=== PATIENT | female | born 1990 | race Caucasian/White ===

== ENCOUNTER → 2018-11-01 15:55 | Observation (INO) ==
[2018-11-01 14:17] LABS: Amphetamine Screen,Urine Negative ng/mL (Cutoff=1000); Barbiturate Screen,Urine Negative ng/mL (Cutoff=200); Benzodiazepines Screen,Urine Negative ng/mL (Cutoff=200); Cannabinoid Screen,Urine Negative ng/mL (Cutoff = 50); Cocaine Screen,Urine Negative ng/mL (Cutoff= 300); Opiate Screen,Urine Negative ng/mL (Cutoff=300); Phencyclidine Screen,Urine Negative ng/mL (Cutoff=25)
--- NOTE | 2018-11-01 15:39 | Discharge Summary ---
Date of Encounter: 11/01/18 Time of Encounter: 15:40 - Discharge Diagnosis (1) 23 weeks gestation of Priority: Primary Status: Acute Comments: Admitted to observation status post fall at workplace (2) Twin gestation in second trimester Priority: Secondary Status: Acute Qualifiers: Multiple gestation type: dichorionic and diamniotic Qualified Code(s): O30.042 - Twin , dichorionic/diamniotic, second trimester (3) Status post fall Priority: Secondary Status: Acute Comments: Patient reports soreness of back and lower abdomen. Tylenol and heat pack given. No bleeding or contractions present. (4) Blood type O- Priority: Secondary Status: Acute Comments: KHB negative today. - Discharge Medications Prescriptions: No Action LORazepam [Ativan] 0.5 mg PO BID PRN PRN Reason: Anxiety Home Medications: LORazepam [Ativan] 0.5 mg PO BID PRN 05/09/18 [History] Allergies/Adverse Reactions: Allergy/AdvReac Type Severity Reaction Status Date / Time No Known Allergies Allergy Verified 02/23/18 07:44 Data Procedures and tests throughout hospitalization: Laboratory Tests 11/01/18 11/01/18 13:51 13:51 Volume Blood 0 Urine Opiates Screen Negative Ur Barbiturates Screen Negative Ur Phencyclidine Scrn Negative Ur Amphetamines Screen Negative U Benzodiazepines Scrn Negative Urine Cocaine Screen Negative U Marijuana (THC) Screen Negative Ur Drug Screen Interp See Below Labs on day of discharge: Labs from last 24 hours 11/01/18 11/01/18 13:51 13:51 Volume Blood 0 Urine Opiates Screen Negative Ur Barbiturates Screen Negative Ur Phencyclidine Scrn Negative Ur Amphetamines Screen Negative U Benzodiazepines Scrn Negative Urine Cocaine Screen Negative U Marijuana (THC) Screen Negative Ur Drug Screen Interp See Below Date of admission: 11/01/18 12:01 Primary care physician: Kathryn Ivey CNP Discharging clinician: Destiney Davis Anticipated date of discharge: 11/01/18 - Patient Status Disposition: Home, Self-Care Condition: Good Functional capacity at discharge: independent ambulation Overall status at discharge: patient is progressing back to baseline - Discharge Instructions Follow Up With: Kathryn Ivey CNP [Primary Care Provider] - Additional Instructions: May have work note for tomorrow 11/02/18 if needed. - Diet and Activity Activity: increase activity as tolerated Diet: regular diet Hospital Course [employer] Hospital course: Patient comes to L&D after assisting a patient who was falling while at work. Patient states the patient did not fall directly on her and she did not fall directly on her abdomen. She states she was able to push the patient away from her as he fell and she did not land on her abdomen. She does report positive movement of both infants, denies bleeding, fluid leakage and contractions. Her blood type is O negative so we did perform a KHB which returned negative. Patient is given a work note for tomorrow if she finds she is too sore to go to work. She was given Tylenol and heating pad while here with slight relief of soreness. She was offered Flexeril and declined. To follow up as scheduled in office as scheduled for routine care unless she has any further problems. Time Attestation: Total time spent providing and/or coordinating discharge services: Time Spent: Less than 30 minutes Exam - Constitutional General appearance IM: A&O X 3, pleasant, no acute distress, answers questions appropriately Exam: Patient reports soreness in back on lower abdomen - Respiratory Respiratory exam: Present: CTAB - Cardiovascular Cardiovascular exam IM: Present: RRR, +S1, +S2 - GI/Abdominal GI/Abdominal exam IM: normal bowel sounds, soft - Rectal Rectal exam: deferred - External exam: normal external exam - Extremities Exam Extremities exam IM: Present: full ROM, normal capillary refill, normal inspection - Neurological Exam Neurological exam: alert, normal gait, oriented X3 - Other Additional findings: FHR A 145 bpm per auscultation FHR B 150 bpm per auscultation - VTE Reasons for not Prescribing Prophylaxis: Treatment not Indicated - Low risk for VTE
[~2018-11-01 15:55] MED LIST: Acetaminophen 325 MG TABLET PO PRN
== END | disposition home or self-care (01) ==
LOC: 1NENULAB
PROVIDERS: ADMIT Registered Nurse; ATTEND Registered Nurse

== ENCOUNTER → 2018-12-25 20:33 | Observation (INO) ==
[2018-12-25 19:07] LABS: Bilirubin,Urine Negative (Negative); Blood,Urine Negative (Negative); Clarity,Urine Clear (Clear); Color,Urine Yellow (Yellow); Glucose,Urine (UA) Normal (Normal); Ketones,Urine Negative (Negative); Leukocyte Esterase,Urine Trace (Negative); Nitrite,Urine Negative (Negative); PH,Urine 7.5 pH Units (5.0-8.0); Protein,Urine Negative (Neg-Trace); Urobilinogen,Urine Normal (Normal)
[2018-12-25 19:10] LABS: Bacteria,Urine None Seen per hpf (None-Few); Hyaline Casts,Urine None Seen per lpf (None-Few); RBC,Urine 0-3 per hpf (0-3); Squamous Epithelial Cell,Urine Many per lpf (None-Few); WBC,Urine 0-3 per hpf (0-3)
--- NOTE | 2018-12-25 19:30 | OB/GYN Progress Note ---
Date of Encounter: 12/25/18 Time of Encounter: 19:29 - Assessment and Plan (1) 31 weeks gestation of Current Visit: Yes Status: Acute (2) labor in third trimester Current Visit: Yes Status: Acute Pt having irregular uc's after active day today. Will give brethine 0.25 mg sq x1. Will observe Qualifiers: labor delivery status: without delivery Qualified Code(s): O60.03 - labor without delivery, third trimester (3) Twin gestation in third trimester Current Visit: Yes Status: Acute Qualifiers: Multiple gestation type: dichorionic and diamniotic Qualified Code(s): O30.043 - Twin , dichorionic/diamniotic, third trimester Subjective - Subjective Principal diagnosis: Twins, labor, 31 weeks gestation Interval history: Patient's 20-year-old 5 para 2 female at 31 weeks gestation presents to labor and delivery with frequent abdominal tightening that is painless today she states up to 5-69 a viable taken for 1-2 minutes she denies bleeding or leakage of fluid. She was having midline her hospital and was quite active this morning. She has been hydrating while and denies UTI symptoms. Objective - Vital Signs Vital Signs: Intake and Output 12/25/18 12/25/18 12/25/18 07:59 15:59 23:59 Other: Weight 77.201 kg Patient Weight 12/25/18 23:59 Weight 77.201 kg - Exam FHR: category 1 (x2) Auscultation: bilateral: normal Abdomen: Present: gravid Cervical dilation: cl Cervix effacement: th station: -2 - Labs Labs: Abnormal lab results Ur Leukocyte Esterase Trace (Negative) H 12/25/18 18:30 Ur Squamous Epith Cells Many per lpf (None-Few) H 12/25/18 18:30 Ur Culture Indicated? YES (NO) A 12/25/18 18:30
[2018-12-25 19:40] LABS: Amphetamine Screen,Urine Negative ng/mL (Cutoff=1000); Barbiturate Screen,Urine Negative ng/mL (Cutoff=200); Benzodiazepines Screen,Urine Negative ng/mL (Cutoff=200); Cannabinoid Screen,Urine Negative ng/mL (Cutoff = 50); Cocaine Screen,Urine Negative ng/mL (Cutoff= 300); Opiate Screen,Urine Negative ng/mL (Cutoff=300); Phencyclidine Screen,Urine Negative ng/mL (Cutoff=25)
--- NOTE | 2018-12-25 20:16 | OB Labor Progress Note ---
Date of Encounter: 12/25/18 Time of Encounter: 20:14 Labor Progress Note - Subjective Subjective: pt denies uc's. No vb or lof. - Cervix Cervix: cl/th/-2 - Heart Tones Heart Tones: RNST - [place]: no uc's - Plan Plan: Will d/c home.
[~2018-12-25 20:33] MED LIST changes: -Acetaminophen 325 MG TABLET PO PRN; +Terbutaline 1 MG/ML VIAL SQ ONE
== END | disposition home or self-care (01) ==
LOC: 1NENULAB
PROVIDERS: ADMIT Obstetrics & Gynecology; ATTEND Obstetrics & Gynecology

== ENCOUNTER 2019-01-13 18:44 | Inpatient (IN) ==
[2019-01-13 15:56] LABS: Bilirubin,Urine Negative (Negative); Blood,Urine Negative (Negative); Clarity,Urine Cloudy (Clear); Color,Urine Yellow (Yellow); Glucose,Urine (UA) Normal (Normal); Ketones,Urine Negative (Negative); Leukocyte Esterase,Urine Small (Negative); Nitrite,Urine Negative (Negative); PH,Urine 7.5 pH Units (5.0-8.0); Protein,Urine Negative (Neg-Trace); Specific Gravity,Urine 1.014 (1.010-1.025); Urobilinogen,Urine Normal (Normal)
[2019-01-13] MEDS: Betamethasone Acet/SodPhos 30 MG/5 ML VIAL IM SCH (15:57)
[2019-01-13 16:00] LABS: Bacteria,Urine None Seen per hpf (None-Few); Hyaline Casts,Urine None Seen per lpf (None-Few); RBC,Urine 0-3 per hpf (0-3); Squamous Epithelial Cell,Urine Many per lpf (None-Few)
[2019-01-13 16:06] LABS: Amphetamine Screen,Urine Negative ng/mL (Cutoff=1000); Barbiturate Screen,Urine Negative ng/mL (Cutoff=200); Benzodiazepines Screen,Urine Negative ng/mL (Cutoff=200); Cannabinoid Screen,Urine Negative ng/mL (Cutoff = 50); Cocaine Screen,Urine Negative ng/mL (Cutoff= 300); Opiate Screen,Urine Negative ng/mL (Cutoff=300); Phencyclidine Screen,Urine Negative ng/mL (Cutoff=25)
[2019-01-13 16:19] LABS: Amorphous Sediment,Urine Few (Few)
[~2019-01-13 18:44] MED LIST changes: +*HR* Nalbuphine 10 MG/ML AMPUL IVP PRN; +D5% in Lactated Ringers 1,000 ML IVC ONE; +Famotidine 20 MG/2 ML VIAL IVP PRN; +Lidocaine 1% 20 ML MDV ID PRN; +Metoclopramide 10 MG/2 ML VIAL IVP PRN; +Naloxone 0.4 MG/ML INJ IVP PRN; +Ondansetron 4 MG/2 ML VIAL IVP PRN; +Ringers Solution, Lactated 1,000 ML IVC ONE; -Terbutaline 1 MG/ML VIAL SQ ONE
[2019-01-13] MEDS ORDERED: Ringers Solution, Lactated 1,000 ML IVC SCH (18:45)
[2019-01-13 19:00] LABS: Basophils # 0.1 K/mcL (0.0-0.2); Basophils % 0.6 %; Eosinophils # 0.4 K/mcL (0.0-0.6); Eosinophils % 3.7 %; Hematocrit 36.6 % (35.3-44.9); Hemoglobin 12.3 g/dL (11.5-15.4); Immature Granulocytes % 0.3 % (0-4); Lymphocytes # 2.3 K/mcL (0.6-4.6); Lymphocytes % 24.2 %; Mean Corpuscular HGB Conc 33.6 g/dL (31.6-35.5); Mean Corpuscular Hemoglobin 30.1 pg (28.0-33.3); Mean Corpuscular Volume 89.5 fL (83.0-100.0); Mean Platelet Volume 11.1 fL (9.4-12.4); Monocytes # 0.8 K/mcL (0.0-1.3); Monocytes % 8.4 %; Platelet Count 235 K/mcL (140-400); Red Blood Count 4.09 M/mcL (3.82-4.97); Red Cell Distribution Width 12.3 % (11.5-14.5); Segmented Neutrophils % 62.8 %
[2019-01-13] MEDS ORDERED: Epidural Premix (fent/bupiv) 110 ML EP SCH (19:15)
[2019-01-13] MEDS ORDERED: Penicillin G Potassium 5,000,000 UNIT in 0.9 % Sodium Chloride Mini Bag 100 ML IVPB ONE (20:04)
--- NOTE | 2019-01-13 20:36 | OB/GYN History & Physical ---
Date of Encounter: 01/13/19 Time of Encounter: 20:27 Assessment and Plan (1) labor in third trimester Current visit: No Status: Acute 28yo @ 34.2wga admitted for expectant management of labor. PCN for GBS ppx @ < 37wga. Continuous EFM & TOCO. O neg, ab neg, GBS unk, Hep B neg, RI, , HIV neg, RPR neg, GC/CT neg. Cat 1 FHR Tracing x2 Qualifiers: labor delivery status: without delivery Qualified Code(s): O60.03 - labor without delivery, third trimester (2) Maternal care for breech presentation, fetus 2 Current visit: Yes Status: Acute Plan for double setup in OR. Discussed risks, benefits & alternatives to possible breech vaginal delivery vs section of breech fetus. Questions answered & pt consented to procedure. (3) Blood type O- Current visit: No Status: Acute 2 units T&C. Consents for transfusion signed. (4) Twin gestation in third trimester Current visit: No Status: Acute Qualifiers: Multiple gestation type: dichorionic and diamniotic Qualified Code(s): O30.043 - Twin , dichorionic/diamniotic, third trimester History of Present Illness Chief complaint: Contractions HPI: Ms. Zach Drummond is a 28 year old female @ 34.2wga presents from clinic with intermittent contractions & dilated to 2-3cm & 50% effaced with Di-Di- twins gestation. Growth scan on 01/06/19 showed Twin A (girl) vertex @ 1914g & Twin B (male) breech @ 2000g. She had discussed a vaginal delivery for Twin A & an attempted vaginal delivery for Twin B with Dr. Sorto. +FM x2. She denies VB, LOF, abnormal vaginal discharge, dysuria, CP, SOB, or any complications with this . Past Med Surg Social Fam HX - Past Medical History Attestation: Yes The following information was validated with the patient. Source: patient Medical history: GERD, migraine Psychiatric history: anxiety, depression - Past Surgical History Additional surgical history: FOOT SURGERY. SEPTOPLASTY. D&C x2 - Social History Smoking Status: Former smoker Smokeless Tobacco Status: No Alcohol use: none Drug use: none Current living situation: Home - Independent Activity Level: Independent ambulation Recent Out of Country Travel Within the Last 8 Weeks: No Exposure or Possible Exposure to Illness During Travel: No - Family History Mother Living Status: Cause of : fall Hx Family Cardiac Disorders: No Hx Family Respiratory Disorders: No Hx Family Cancer: No Hx Family GI Disorders: No Hx Family Endocrine Disorder: No Hx Family Neuromuscular Disorders: No Hx Family Neurologic Disorders: No Hx Family HEENT Disorders: No Hx Family Autoimmune Disorders: No Hx Family Medical Disorders: Yes (Diabetic) Obstetrical History - Pregnancies : 5 Para: 2 Term: 2 : 0 Ab's: 2 (SAB x 2, D&C x2) Livin Medications and Allergies Aspirin 01/13/19 [History] Folic Acid 01/13/19 [History] Tablet 81 mg PO ONCE 01/13/19 [History] Allergy/AdvReac Type Severity Reaction Status Date / Time No Known Allergies Allergy Verified 02/23/18 07:44 Review of System OB All systems PM: reviewed and no additional remarkable complaints except as stated - Constitutional Constitutional ROS IM: as per HPI Exam - Constitutional Constitutional: well developed, no acute distress, average body habitus - HEENT HEENT: EOMI, Normocephaly, Mucus Membranes Moist - Neck Neck exam: supple - Abdomen Abdomen: Present: gravid, non tender - Cervix Dilation: 4 Effacement: 70 Station: -2 Results Result Diagrams: 01/13/19 15:50 Abnormal lab results Cloudy (Clear) A 01/13/19 15:30 Ur Leukocyte Esterase Small (Negative) H 01/13/19 15:30 5-15 per hpf (0-3) H 01/13/19 15:30 Ur Squamous Epith Cells Many per lpf (None-Few) H 01/13/19 15:30 Ur Culture Indicated? YES (NO) A 01/13/19 15:30 All other labs normal. - VTE Reasons for not Prescribing Prophylaxis: Treatment not Indicated - Low risk for VTE
--- NOTE | 2019-01-13 21:28 | Anesthesia Evaluation PreOp ---
Date of Encounter: 01/13/19 Time of Encounter: 21:25 - Past History Planned Operation: OF TWINS, POSSIBLE LSCS Other Medical History: GERD, Other (, 34.2 WKS, BREECH FETUS #2, PROGRESSING [employer]) Anesthesia History: Past Anesthesia, Problems (PONV) Alcohol Use: none Drug use: none Medications and Allergies Aspirin 01/13/19 [History] Folic Acid 01/13/19 [History] Tablet 81 mg PO ONCE 01/13/19 [History] Allergy/AdvReac Type Severity Reaction Status Date / Time No Known Allergies Allergy Verified 02/23/18 07:44 - Meds/Allergy Pre-op Review Medications Reviewed: Yes Allergies Reviewed: Yes Anesthesia Results - Labs 01/13/19 15:50 Laboratory Tests 01/13/19 15:50 Blood Type O NEGATIVE Antibody Screen POSITIVE Antibody Identification Pending Anesthesia Exam Weight: 78 KG - BMI 30 - HEENT Mallampati: I Teeth: Normal Oral Opening: Greater than 3 - Cardiac Rhythm: Regular - Pulmonary Breath Sounds: bilateral Clear Anesthesia Assess/Plan ASA Score: 2, E Anesthetic Plan: General (BACKUP PLAN), Epidural Monitoring Plan: Standard Monitors Recovery Plan: PACU
[2019-01-13] MEDS ORDERED: *HR* Morphine 2 MG/ML SYRINGE IVP ONE (23:58)
--- NOTE | 2019-01-14 00:03 | OB/GYN Progress Note ---
Date of Encounter: 01/14/19 Time of Encounter: 00:01 - Assessment and Plan (1) labor in third trimester Current Visit: No Status: Acute 28yo @ 34.3wga admitted for expectant management of labor. PCN for GBS ppx @ < 37wga. Continuous EFM & TOCO. O neg, ab neg, GBS unk, Hep B neg, RI, , HIV neg, RPR neg, GC/CT neg. Cat 1 FHR Tracing x2 Qualifiers: labor delivery status: without delivery Qualified Code(s): O60.03 - labor without delivery, third trimester (2) Maternal care for breech presentation, fetus 2 Current Visit: Yes Status: Acute Plan for double setup in OR. Discussed risks, benefits & alternatives to possible breech vaginal delivery vs section of breech fetus. Questions answered & pt consented to procedure. (3) Blood type O- Current Visit: No Status: Acute 2 units T&C, on hold in blood bank. (4) Twin gestation in third trimester Current Visit: No Status: Acute Qualifiers: Multiple gestation type: dichorionic and diamniotic Qualified Code(s): O30.043 - Twin , dichorionic/diamniotic, third trimester (5) Anxiety associated with birthing process Current Visit: Yes Status: Acute 5mg morphine IVP Subjective - Subjective Principal diagnosis: Labor Interval history: An SVE was performed by BEBETO Roberson (). The pt verbalized her anxiety about the process & requested me to talk with her. Initially she declined any medication for her anxiety as she was concerned for the health of her babies. After assuring her I would not suggest an intervention that would compromise them, she was amenable to medical intervention, so long as it wouldn't interfere "with the babies coming". Antepartum ROS: movement normal, other (Anxiety) Objective - Vital Signs Vital Signs: Intake and Output 01/13/19 01/13/19 01/14/19 15:59 23:59 07:59 Other: Weight 77.7 kg 77.7 kg - Exam FHR: category 1 - Labs Labs: Abnormal lab results Cloudy (Clear) A 01/13/19 15:30 Ur Leukocyte Esterase Small (Negative) H 01/13/19 15:30 5-15 per hpf (0-3) H 01/13/19 15:30 Ur Squamous Epith Cells Many per lpf (None-Few) H 01/13/19 15:30 Ur Culture Indicated? YES (NO) A 01/13/19 15:30
[2019-01-14] MEDS: Penicillin G Potassium 2,500,000 UNIT in 0.9 % Sodium Chloride 100 ML IVPB SCH ×2 (00:27→04:21)
[2019-01-14] MEDS: D5% in Lactated Ringers 1,000 ML IVC SCH ×2 (01:29→01:30)
--- NOTE | 2019-01-14 09:00 | OB/GYN Progress Note ---
Date of Encounter: 01/14/19 Time of Encounter: 08:57 - Assessment and Plan (1) labor in third trimester Current Visit: Yes Status: Acute 28 y/o @ 34+3 wks, di-di, vtx-br twins, PTL, Migraines Plan: I reviewed the strip and CAT 1, cervix checked and 5cm/70%/posterior I discussed with the patient that we'll be doing conservative management at this time so I'll be transfering her to , she can have breakfast and NST Q shift Subjective - Subjective Interval history: Patient is doing well, she's no longer ashwin, no LOF or VB Objective - Vital Signs Vital Signs: Intake and Output 01/13/19 01/14/19 01/14/19 23:59 07:59 15:59 Intake Total 100 / 100 Balance 100 / 100 Intake: IV Fluids 100 / 100 Pfizerpen 2,500,000 Unit In 0.9 100 / 100 % Sodium Chloride 100 ML @ 100 mls/hr IVPB Q4HR [facility] Rx#: [id number] Other: Weight 77.7 kg - Exam FHR: auscultation normal, category 1 - Labs Labs: Abnormal lab results Cloudy (Clear) A 01/13/19 15:30 Ur Leukocyte Esterase Small (Negative) H 01/13/19 15:30 5-15 per hpf (0-3) H 01/13/19 15:30 Ur Squamous Epith Cells Many per lpf (None-Few) H 01/13/19 15:30 Ur Culture Indicated? YES (NO) A 01/13/19 15:30
[2019-01-14] MEDS: Betamethasone Acet/SodPhos 30 MG/5 ML VIAL IM SCH (15:56)
[2019-01-15 08:25] VITALS: BP 114/98
--- NOTE | 2019-01-15 10:50 | OB/GYN Progress Note ---
Date of Encounter: 01/15/19 Time of Encounter: 10:46 - Assessment and Plan (1) labor in third trimester Current Visit: Yes Status: Acute Patient has received 2 doses of steroids on 01/13/19 and 01/14/19. Consider discharge home today after morning NST if no regular contraction pattern. Qualifiers: labor delivery status: without delivery Qualified Code(s): O60.03 - labor without delivery, third trimester (2) Premature cervical dilation in third trimester Current Visit: Yes Status: Acute On admission to L&D on 01/13/19 patient was 2-3 cm and progressed to 5-6 cm with no change in >24 hours. Esther does live approx 45 minutes from [place] and was given instructions to return for any signs of labor. (3) Twin gestation in third trimester Current Visit: No Status: Acute Conservative management. Close follow up once discharged home. Qualifiers: Multiple gestation type: dichorionic and diamniotic Qualified Code(s): O30.043 - Twin , dichorionic/diamniotic, third trimester (4) Maternal care for breech presentation, fetus 2 Current Visit: Yes Status: Acute Will be determined at time of delivery. Subjective - Subjective Principal diagnosis: labor, twin gestation Interval history: Patient is feeling well. SVE this morning is without change at 5-6cm/80/-2. She reports rare contractions and would really like to be discharged home today if possible. We discussed this possibility as long as regular contractions are not showing on her NST this morning. She has a scheduled NST in 2 days. Antepartum ROS: movement normal, contractions (irregular), no loss of fluid, no vaginal bleeding Objective - Vital Signs Vital Signs: Vital Signs Temp Pulse Resp BP Pulse Ox 01/15/19 08:24 98.1 F 102 16 114/98 98 01/15/19 01:45 98.0 F 102 16 121/75 98 01/14/19 19:45 98.2 F 104 16 118/75 97 01/14/19 15:46 98.4 F 94 16 108/69 Intake and Output 01/14/19 01/15/19 01/15/19 23:59 07:59 15:59 Intake Total 900 / 1500 360 / 360 Output Total 1000 / 1600 800 / 1600 800 / 1600 Balance -100 / -100 -800 / -1240 -440 / -1240 Intake: Oral 900 / 1400 360 / 360 Output: Urine 1000 / 1600 800 / 1600 800 / 1600 Other: Meal Dinner Breakfast Percent of Meal Consumed 100% 100% Weight 82.6 kg Patient Weight 01/15/19 23:59 Weight 82.6 kg - Exam Auscultation: bilateral: normal Abdomen: Present: normal appearance, soft, gravid Uterus: Present: normal Cervical dilation: 5-6 Cervix effacement: 70 station: -2 Comments: Posterior - Labs Labs: Abnormal lab results Cloudy (Clear) A 01/13/19 15:30 Ur Leukocyte Esterase Small (Negative) H 01/13/19 15:30 5-15 per hpf (0-3) H 01/13/19 15:30 Ur Squamous Epith Cells Many per lpf (None-Few) H 01/13/19 15:30 Ur Culture Indicated? YES (NO) A 01/13/19 15:30
--- NOTE | 2019-01-15 14:38 | Discharge Summary ---
Date of Encounter: 01/15/19 Time of Encounter: 14:37 - Discharge Diagnosis (1) labor in third trimester Priority: Primary Status: Acute Comments: See antepartum note for A&P Qualifiers: labor delivery status: without delivery Qualified Code(s): O60.03 - labor without delivery, third trimester (2) Premature cervical dilation in third trimester Priority: Secondary Status: Acute (3) Twin gestation in third trimester Priority: Secondary Status: Acute Qualifiers: Multiple gestation type: dichorionic and diamniotic Qualified Code(s): O30.043 - Twin , dichorionic/diamniotic, third trimester (4) Maternal care for breech presentation, fetus 2 Priority: Secondary Status: Acute - Discharge Medications Prescriptions: Continued Tablet 81 mg PO ONCE Folic Acid Aspirin Home Medications: Aspirin 01/13/19 [History] Folic Acid 01/13/19 [History] Tablet 81 mg PO ONCE 01/13/19 [History] Allergies/Adverse Reactions: Allergy/AdvReac Type Severity Reaction Status Date / Time No Known Allergies Allergy Verified 02/23/18 07:44 Data Procedures and tests throughout hospitalization: Laboratory Tests 01/13/19 01/13/19 01/13/19 15:30 15:30 15:50 WBC RBC Hgb Hct MCV MCH MCHC RDW Plt Count MPV Immature Gran % Seg Neutrophils % Lymphocytes % Monocytes % Eosinophils % Basophils % Neutrophils # Lymphocytes # Monocytes # Eosinophils # Basophils # Urine Color Yellow Urine Clarity Cloudy A Urine pH 7.5 Ur Specific [place] 1.014 Urine Protein Negative Urine Glucose (UA) Normal Urine Ketones Negative Urine Blood Negative Urine Nitrite Negative Urine Bilirubin Negative Urine Urobilinogen Normal Ur Leukocyte Esterase Small H Urine Microscopic RBC 0-3 Urine Microscopic WBC 5-15 H Ur Squamous Epith Cells Many H Amorphous Sediment Few Urine Bacteria None Seen Hyaline Casts None Seen Ur Culture Indicated? YES A Urine Opiates Screen Negative Ur Barbiturates Screen Negative Ur Phencyclidine Scrn Negative Ur Amphetamines Screen Negative U Benzodiazepines Scrn Negative Urine Cocaine Screen Negative U Marijuana (THC) Screen Negative Ur Drug Screen Interp See Below Blood Type O NEGATIVE Antibody Screen POSITIVE Antibody Identification Anti-D Due to Rhogam 01/13/19 15:50 WBC 9.5 RBC 4.09 Hgb 12.3 Hct 36.6 MCV 89.5 MCH 30.1 MCHC 33.6 RDW 12.3 Plt Count 235 MPV 11.1 Immature Gran % 0.3 Seg Neutrophils % 62.8 Lymphocytes % 24.2 Monocytes % 8.4 Eosinophils % 3.7 Basophils % 0.6 Neutrophils # 6.0 Lymphocytes # 2.3 Monocytes # 0.8 Eosinophils # 0.4 Basophils # 0.1 Urine Color Urine Clarity Urine pH Ur Specific [place] Urine Protein Urine Glucose (UA) Urine Ketones Urine Blood Urine Nitrite Urine Bilirubin Urine Urobilinogen Ur Leukocyte Esterase Urine Microscopic RBC Urine Microscopic WBC Ur Squamous Epith Cells Amorphous Sediment Urine Bacteria Hyaline Casts Ur Culture Indicated? Urine Opiates Screen Ur Barbiturates Screen Ur Phencyclidine Scrn Ur Amphetamines Screen U Benzodiazepines Scrn Urine Cocaine Screen U Marijuana (THC) Screen Ur Drug Screen Interp Blood Type Antibody Screen Antibody Identification Labs on day of discharge: Preliminary micro results at discharge 01/13/19 16:10 Group B Streptococcus Culture - Preliminary Vaginal Culture is incubating. Date of admission: 01/13/19 18:44 Primary care physician: Kathryn Ivey CNP Discharging clinician: Destiney Davis Anticipated date of discharge: 01/15/19 - Patient Status Disposition: Home, Self-Care Condition: Good Functional capacity at discharge: independent ambulation Overall status at discharge: patient is progressing back to baseline - Discharge Instructions Follow Up With: Kathryn Ivey CNP [Primary Care Provider] - Marco Sorto MD [Partnered Physician] - - Diet and Activity Activity: other (Modified bed rest. Pelvic rest.) Diet: regular diet Hospital Course [employer] Hospital course: Reactive NST for fetus A&B this morning. Approximately 6 ctx in 40 minutes but patient did not feel them. Discussed POC with on-call Pasquale VAUGHN and decision made to send patient home with strict labor precautions. Time Attestation: Total time spent providing and/or coordinating discharge services: Time Spent: Less than 30 minutes Exam - Constitutional Vitals: Temp Pulse Resp BP Pulse Ox 98.1 F 102 16 114/98 98 01/15/19 08:24 01/15/19 08:24 01/15/19 08:24 01/15/19 08:24 01/15/19 08:24 - VTE Reasons for not Prescribing Prophylaxis: Treatment not Indicated - Low risk for VTE
== END 2019-01-15 13:00 | disposition home or self-care (01) | DRG 831 ==
LOC: 1NENULAB → 1NENUOBS 01-14 10:13
PROVIDERS: ADMIT Advanced Practice Midwife; ATTEND Advanced Practice Midwife